=== PATIENT | male | born 1945 | race Caucasian/White ===

== ENCOUNTER 2016-09-15 10:38 | Emergency (ER) | payer OTHER ==
[2016-09-15 10:47] VITALS: TEMP 97.5
--- NOTE | 2016-09-15 11:26 | EDPHY ---
H & P Smoking Status: Never smoked Time Seen by Provider: 09/15/16 11:01 HPI/ROS: CHIEF COMPLAINT: Right great toe infection HISTORY OF PRESENT ILLNESS: 71-year-old male presents to the emergency department with concerns of infection to the right great toe. The patient was seen at a hospital in [place] where he lives 10 days ago and was started on Keflex. He took Keflex 500 mg twice daily for the last 10 days. He finished this medication last night. He has not noticed any fevers or chills. Continues to note weeping and drainage from his right great toe. He states initially started as a blister to the dorsal aspect of the right great toe after wearing a pair of Crocs. He states when the skin sloughed off he had weeping and drainage now has diffuse ecchymosis and more pain. Has not noticed any fevers or chills. He denies lymphangitis. He denies pain in his groin. The patient also has a history spinal infection where he was treated with IV antibiotics this past summer. Just finished IV antibiotics in April. Patient is having recurring pain in his neck and upper back area and he is concerned that he is developing a recurring spinal infection. REVIEW OF SYSTEMS: Constitutional: No fever, no chills. Eyes: No double or blurry vision. ENT: No sore throat. Respiratory: No cough, no shortness of breath. Cardiac: No chest pain. Gastrointestinal: No abdominal pain, vomiting or diarrhea. Genitourinary: No dysuria. Musculoskeletal: Neck and back pain as above Skin: No rashes. Neurological: No headache. (Cristina Crabtree) Past Medical/Surgical History: Valve replacement, type 2 diabetic (Cristina Crabtree) Social History: and lives in [place] (Cristina Crabtree) Physical Exam: General Appearance: Alert, no distress. 149/83, afebrile and nontoxic- appearing. Eyes: Pupils equal and round. Extraocular motions are all intact. ENT: Mouth: Mucous membranes moist. Respiratory: No wheezing, rhonchi, or rales, lungs are clear to auscultation. Cardiovascular: Regular rate and rhythm. Gastrointestinal: Abdomen is soft and nontender, no masses, no rebound or guarding, bowel sounds normal. Neurological: Alert and oriented x 3, cranial nerves II through XII grossly intact Skin: Right great toe reveals diffuse ecchymosis with serosanguineous drainage to the dorsal aspect of the right great toe. There is no lymphangitis. It is tender to palpate. No subungual hematoma noted. Toenail is intact. It is not warm to the touch. The patient has a small vesicular lesion to the dorsal aspect of the right 2nd toe as well. The other toes appear unaffected. He has full range of motion of his toes. Full range of motion of the right ankle. Musculoskeletal: Nontender to palpate along the cervical, thoracic or lumbar spine. Neck is supple. Extremities: Full range of motion and no peripheral edema. Psychiatric: Patient is oriented X 3, there is no agitation. (Cristina Crabtree) Constitutional: Initial Vital Signs Temperature (C) 36.4 C 09/15/16 10:44 Heart Rate 81 09/15/16 10:44 Respiratory Rate 18 09/15/16 10:44 Blood Pressure 149/83 H 09/15/16 10:44 O2 Sat (%) 96 09/15/16 10:44 O2 Delivery Mode Room Air Allergies/Adverse Reactions: lisinopril Allergy (Verified 09/15/16 10:47) Home Medications: Medication Instructions Recorded ATENOLOL [Atenolol 50 mg] 50 mg PO DAILY 05/13/11 Aspirin [Aspirin 81mg] 81 mg PO DAILY 05/13/11 Cephalexin [Keflex] 500 mg PO QID #40 cap 05/13/11 Furosemide [Lasix] 20 mg PO 05/13/11 Metformin HCl 1,000 mg PO 05/13/11 Potassium Chloride [Klor-Con] 10 meq PO 05/13/11 Pravastatin Sodium 40 mg PO 05/13/11 SULFAMETHOXAZOLE/TRIMETHOPRIM 1 each PO BID #20 tab 05/13/11 [BACTRIM DS TABLET] TEMAZEPAM 30 mg PO 05/13/11 WARFARIN SODIUM [Jantoven] 4 mg PO DAILY 05/13/11 Carisoprodol 09/15/16 Doxazosin Mesylate 09/15/16 Flexeril 09/15/16 GABAPENTIN 09/15/16 Glimepiride 09/15/16 levOFLOXACIN [Levaquin] 750 mg PO DAILY 7 Days 09/15/16 Medical Decision Making - Diagnostics Imaging: X-ray of the right great toe reveals no evidence of osteomyelitis or fracture. This is reviewed by myself in the PACs as well as with the radiologist. T spine MRI: Impression:1. There is a fluid collection in the operative bed largest behind the T1 level. It is difficult to determine if this is infected or not. Since we could not proceed with a gadolinium study, a CT with IV contrast would be helpful to determine if there is marginal enhancement.. 2. Suspect cord tethering to the operative bed at the T2 level. 3. Small radiographically occult metallic fragment at the T5 level. 4. Remote diskitis at the T7-T8 level. This was reported to me by Dr. Omi Josue. (Cristina Crabtree) ED Course/Re-evaluation: 71-year-old male presents to the emergency department complaining of ongoing pain in his right great toe. Clinically he appears to have a wound infection of the right great toe. He has been taking Keflex although only 500 mg twice daily which she finished last night. X-rays of the right great toe revealed no evidence of fracture or osteomyelitis. The patient will be started on Levaquin and was encouraged to have close follow-up with his primary care provider. Patient also reports that he has been having ongoing pain in his neck and his upper back over last several months. He denies any known trauma or injury. This past summer he developed spinal infection where he required IV antibiotics. He finished these in April or May and has continued to have ongoing pain since then and is concerned about recurrent infection. I discussed the case with Dr. Allan Gray , secondary supervising physician, who also evaluated the patient and recommended obtaining MRI of the thoracic spine. MRI of the thoracic spine revealed fluid collection in the operative bed largest behind the T1 level. 2. Suspect cord tethering to the operative bed at the T2 level. 3. Small radiographically occult metallic fragment at the T5 level. 4. Remote diskitis at the T7-T8 level. Dr. Omi Josue did not think that the diskitis of T7-T8 level was acute as there is no inflammation although he said CT imaging with IV contrast would help further evaluate this. The patient states that he believes he has a small retained metallic foreign body left in his spine from his surgery. He states they have tried to remove this, however they were not able to find it. I explained to the patient that this was not visible on plain film T-spine x-ray. Patient has no focal neurologic findings. He does not have footdrop. He has normal and equal strength for the upper lower extremities. The MRI results and this case was discussed with Dr. Adi Buchanan after Dr. Allan Gray had gone up shift. Dr. Adi Buchanan recommended that the patient be discharged home with close follow-up with primary care provider and neurosurgeon back in [place] where he has had surgery. He did not recommend further imaging studies or admission. The patient does not have an elevated white blood cell count. His glucose is 185. His creatinine was 1.5 with a BUN of 25. He received IV normal saline while he was in the emergency department. I encouraged the patient to monitor his glucose very closely while taking the Levaquin. Patient's INR was 2.98. The patient felt comfortable being discharged home. I encouraged him to return emergency department immediately if he develops fever, increasing pain, or if you felt worse in any way. Patient was given copies of his x-rays and MRI on disc as well as dictated reports. (Cristina Crabtree) Differential Diagnosis: Including but not limited cellulitis, osteomyelitis, fracture, wound infection, diskitis, abscess, musculoskeletal pain (Cristina Crabtree) Other Provider: I did evaluate this patient. His toe infection will require antibiotics. No signs of osteomyelitis on x-ray and normal white blood cell count. He does have mid thoracic back pain around T4 that reminds him of a previous osteomyelitis of T8 that he was treated for IV antibiotics for 2 months this summer. He has been afebrile. He has a possible foreign body retained in his upper T-spine after surgery that they were unable to find after reexploration. We will obtain a MRI for further evaluation. (Allan Gray) - Data Points Laboratory Results: Laboratory Results 09/15/16 11:30 09/15/16 11:30 Medications Given: Discontinued Medications Sodium Chloride (Ns) 1,000 mls @ 0 mls/hr IV ONCE ONE PRN Reason: Wide Open Stop: 09/15/16 13:23 Last Admin: 09/15/16 14:00 Dose: 1,000 mls Levofloxacin (Levaquin) 750 mg PO EDNOW ONE PRN Reason: Protocol Stop: 09/15/16 17:36 Last Admin: 02/07/17 18:17 Dose: 750 mg Departure - Departure Disposition: Home, Routine, Self-Care Clinical Impression: Blister of great toe, right, infected Qualifiers: Encounter type: initial encounter Qualifier Code: (S90.421A) Blister ( nonthermal), right great toe, initial encounter Diabetes Qualifiers: Diabetes mellitus type: type 2 Diabetes mellitus complication status: with unspecified complications Diabetes mellitus correction insulin use: without correction use Qualifier Code: (E11.8) Type 2 diabetes mellitus with unspecified complications Condition: Good Instructions: Type 2 Diabetes in Adults (ED), Wound Infection (ED), Foot Care for People with Diabetes (ED) Additional Instructions: Follow up with your primary care provider when you return to [place]. You should have your kidney function rechecked. Drink plenty of fluids. Return to the emergency department if he developed fever, increasing pain, red streaking up your leg, or if you feel worse in any way. Follow up with your primary care provider on Wednesday when you return. Follow up with neurosurgeon as discussed for your ongoing neck and back pain. Levaquin daily for 1 week. Referrals: OUT OF STATE,. [Primary Care Provider] - As per Instructions Prescriptions: levOFLOXACIN [Levaquin] 750 mg PO DAILY 7 Days
[2016-09-15 11:46] LABS: % IMMATURE GRANULYOCYTES 0.7 % (0.0-1.1); ABSOLUTE IMMATURE GRANULOCYTES 0.04 10^3/uL (0.00-0.10); ADD DIFF? NO; ADD MORPH? NO; ADD SCAN? NO; ATYPICAL LYMPHOCYTE FLAG 0 (0-99); FRAGMENT RBC FLAG 0 (0-99); HEMATOCRIT 36.5 % (40.0-51.0); HEMOGLOBIN 12.7 g/dL (13.7-17.5); LEFT SHIFT FLG 0 (0-99); LIPEMIA HEMOLYSIS FLAG 90 (0-99); MEAN CELL HEMOGLOBIN 31.8 pg (27.9-34.1); MEAN CELL HEMOGLOBIN CONCENTR. 34.8 g/dL (32.4-36.7); MEAN CELL VOLUME 91.3 fL (81.5-99.8); MEAN PLATELET VOLUME 10.3 fL (8.7-11.7); PLATELET CLUMPS FLAG 0 (0-99); PLATELET COUNT 187 10^3/uL (150-400); RED CELL DISTRIBUTION WIDTH 13.4 % (11.5-15.2)
[2016-09-15 11:54] LABS: INR 2.98 (0.83-1.16); PROTIME(PATIENT) 31.4 SEC (12.0-15.0)
[2016-09-15 12:03] LABS: ANION GAP 14 mEq/L (8-16); CALCIUM 9.7 mg/dL (8.5-10.4); CARBON DIOXIDE 23 mEq/l (22-31); CHLORIDE 104 mEq/L (97-110); CREATININE 1.5 mg/dL (0.7-1.3); GLOMERULAR FILTRATION RATE 46; GLUCOSE 185 mg/dL (70-100); POTASSIUM 4.9 mEq/L (3.5-5.2); SODIUM 141 mEq/L (134-144)
--- NOTE | 2016-09-15 12:08 | DX ---
Right Great Toe, Three Views History: Possible osteomyelitis. Painful blister. Toe is red and swollen. Findings: Alignment and mineralization are normal. There is mild osteal arthritis of the first metata rsophalangeal joint. There is no localized sclerosis or bone destruction. There is no periosteal reac tion. There is no soft tissue calcification.. Impression: No evidence for osteomyelitis..
[2016-09-15] MEDS ORDERED: NS 1,000 ML IV ONE (13:22)
--- NOTE | 2016-09-15 14:23 | DX ---
Thoracic spine, 3 views. History: Pre-MRI clearance. Patient reports history of metallic fragment in the thoracic spine. Findings: Degenerative changes are present throughout the thoracic spine, without evidence of malalig nment or fracture. A metallic prosthetic cardiac valve is noted, along with a hearing aid over the ea rs. No evidence of metal fragment over the thoracic spine. The patient's cardiac valve was present in June, and the patient has undergone subsequent MR I of the lumbar spine after valve placement in January,. Impression: 1. No metallic foreign object is identified over the thoracic spine.
[2016-09-15 14:49] VITALS: BP 151/82
[2016-09-15] MEDS ORDERED: GADOBUTROL 10 ML VIAL IVP ONE (15:05)
--- NOTE | 2016-09-15 16:22 | MR ---
MRI Thoracic Spine without Contrast History: Toe infection. History of prior spinal infection with recurring back pain suspicious for rec urrent infection. Patient states that he has a piece of a metal scalpel in his back, plain films imme diately before this exam did not identify a metal fragment overlying the spine. The patient does have an aortic valve replacement. Diabetes. Technique: Sagittal T1, T2 and STIR imaging is performed. Axial T2 imaging is performed. Upon identif dion a focal field artifact posterior to the thoracic spine at the inferior T5 level, possibly consis tent with a metallic object, this study was stopped. Therefore contrast was not administered, as was ordered. Findings: Thoracic alignment is anatomic. There is a wide laminectomy posterior to the upper thoracic neural canal between C6 and T3. There is a longitudinally oriented, fusiform fluid collection deep i n the operative bed that measures 16 mm at its widest point behind the T1 vertebral body and extends over approximately a 5 cm length. On axial images it is approaching triangular in shape. The thoracic cord conspicuously bows into the dorsal aspect of the neural canal at the T2 level, possibly indicat stuart of tethering from scar. In support of this is the fact that at the midportion of this area (axial image 7, series 8) the dorsal lateral right cord is deformed. Artifact from what may be the metallic fragment behind the lower T5 level (image 19 and 20) obscures visualization of the cord at this leve l. The cord is normal intrinsically elsewhere. There is no syrinx formation, cord gliosis or atrophy. The conus medullaris occurs at T12-L1 and appears normal. There is diffuse fatty marrow replacement of the T7 and T8 vertebral bodies. Endplate irregularity on either side of the white and disk space i s consistent with remote diskitis. There is minimal if any fluid in the T7-T8 disk space. Posterior m argins of all thoracic disks are normal except for a minimal central disk bulge at T6-T7. There is no paraspinal or prevertebral fluid collection. All thoracic neural foramen are widely patent except fo r moderate narrowing of the left T7-T8 foramen, possibly related to scarring. There is no epidural or subdural fluid collection. There is dorsal epidural fat present between upper T5 and lower T9. Impression:1. There is a fluid collection in the operative bed largest behind the T1 level. It is di fficult to determine if this is infected or not. Since we could not proceed with a gadolinium study, a CT with IV contrast would be helpful to determine if there is marginal enhancement.. 2. Suspect cord tethering to the operative bed at the T2 level. 3. Small radiographically occult metallic fragment at the T5 level. 4. Remote diskitis at the T7-T8 level. Results discussed with Cristina Bishop at 419 p.m.
[2016-09-15 18:33] VITALS: PULSE 72; RESP 14; O2SAT 95
== END 2016-09-15 18:32 | disposition home or self-care (01) ==
DX: R23.8 Other skin changes (principal); E11.9 Type 2 diabetes mellitus without complications; Z79.82 Long term (current) use of aspirin; Z79.01 Long term (current) use of anticoagulants
CPT/HCPCS: A9585

== ENCOUNTER 2018-03-31 20:31 | Emergency (ER) | payer OTHER ==
--- NOTE | 2018-03-31 23:29 | EDPHY ---
H & P Stated Complaint: POSS GOUT FLARE UP, L ANKLE SWELLING AND PAIN Time Seen by Provider: 03/31/18 22:22 HPI/ROS: Chief Complaint: Left ankle pain and swelling HPI: 73-year-old male with a history of gout presenting with left ankle pain and swelling similar to prior gout attacks. He denies any fevers or chills. Does have a history of diabetes. 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 He did sustain some abrasions to his left lepe but denies any ankle injury. Denies any other falls or trauma. No fevers or chills. ROS: 10 point Review of Systems is negative except as noted in the HPI. PMH: Diabetes, hypertension, gout, Social History: No smoking, no alcohol, no recreational drug use Family History: non-contributory Physical Exam: Gen: Awake, Alert, No Distress HEENT: Nose: no rhinorrhea Eyes: PERRLA, EOMI Mouth: Moist mucosa Neck: Supple, no JVD Chest: nontender, lungs clear to auscultation Heart: S1, S2 normal, no murmur Abd: Soft, non-tender, no guarding Back: no CVA tenderness, no midline tenderness Ext: Left ankle is mildly swollen. It is tender to the touch diffusely. That is not warm. There is no erythema. 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 , ABD STENT, DM II - Social History Smoking Status: Never smoked Constitutional: Initial Vital Signs Temperature (C) 36.9 C 03/31/18 20:36 Heart Rate 98 03/31/18 20:36 Respiratory Rate 16 03/31/18 20:36 Blood Pressure 149/85 H 03/31/18 20:36 O2 Sat (%) 93 03/31/18 20:36 O2 Delivery Mode Room Air Allergies/Adverse Reactions: lisinopril Allergy (Verified 09/15/16 10:47) Home Medications: Medication Instructions Recorded ATENOLOL [Atenolol 50 mg] 50 mg PO DAILY 05/13/11 Aspirin [Aspirin 81mg] 81 mg PO DAILY 05/13/11 Furosemide [Lasix] 20 mg PO 05/13/11 Metformin HCl 1,000 mg PO 05/13/11 Potassium Chloride [Klor-Con] 10 meq PO 05/13/11 Pravastatin Sodium 40 mg PO 05/13/11 TEMAZEPAM 30 mg PO 05/13/11 WARFARIN SODIUM [Jantoven] 4 mg PO DAILY 05/13/11 Carisoprodol 09/15/16 Flexeril 09/15/16 GABAPENTIN 09/15/16 Glimepiride 09/15/16 Colchicine 0.6 mg PO BID 10 Days capsule 03/31/18 predniSONE 60 mg PO DAILY #9 tab 03/31/18 Medical Decision Making - Diagnostics Imaging Results: Imaging Impressions Ankle X-Ray 03/31/18 22:27 Impression: 1. Overhanging edge osteophyte from the medial malleolus with adjacent soft tissue calcification/tophi have the morphologic characteristics of gout. Some of this may be chronic posttraumatic in nature, a small medial malleolus avulsion fracture is less likely. Imaging: Discussed imaging studies w/ call box wirer Radiologist ED Course/Re-evaluation: X-rays consistent with gout. The patient is refusing joint aspiration at this time. You would like to start on gout medications. He is on Coumadin so I am not going to start him on anti-inflammatories. Will put him on prednisone and colchicine, follow up with primary care physician. - Data Points Medications Given: Discontinued Medications Colchicine (Colchicine) 1.2 mg PO EDNOW ONE Stop: 03/31/18 23:34 Last Admin: 03/31/18 23:38 Dose: 1.2 mg Prednisone (Prednisone) 60 mg PO EDNOW ONE Stop: 03/31/18 23:34 Last Admin: 03/31/18 23:39 Dose: 60 mg Departure - Departure Disposition: Home, Routine, Self-Care Clinical Impression: Gout attack Condition: Good Instructions: Gout (ED) Additional Instructions: Take prednisone for the next 3 days as prescribed. Take colchicine twice a day as prescribed. Follow up with primary care physician in 2-3 days for further evaluation. Return to the emergency department for worsening swelling, worsening redness, warmth, fever, or any other concerns. Referrals: JUAN RODRIGUEZ [Other] - As per Instructions Prescriptions: Colchicine 0.6 mg PO BID 10 Days capsule predniSONE 60 mg PO DAILY #9 tab
[2018-03-31] MEDS ORDERED: predniSONE 20 MG TAB PO ONE (23:33)
[2018-03-31] MEDS ORDERED: COLCHICINE 0.6 MG CAP/TAB PO ONE (23:33)
[2018-04-01 00:06] VITALS: BP 150/69
== END 2018-04-01 00:06 | disposition home or self-care (01) ==
DX: M10.9 Gout, unspecified (principal); E11.9 Type 2 diabetes mellitus without complications; I10 Essential (primary) hypertension
CPT/HCPCS: 73610; 99284; J7512